=== PATIENT | male | born 1965 | race Caucasian/White ===

== ENCOUNTER 2021-09-15 16:48 | Inpatient (IN) | payer BC ==
[~2021-09-15] VITALS: Ht 182 cm; Wt 110.0 kg
[~2021-09-15 16:48] MED LIST: ACHD5005 PO; ALPR0.25 PO; LOSA100T3 PO; METF-397 PO; TIMO10DR12 OP; TRAV5DRO OP
[2021-09-15] MEDS ORDERED: AMIODARONE (BOLUS) 150 MG/3 ML IV ONE (17:04)
[2021-09-15] MEDS ORDERED: AMIODARONE 450 MG/9 ML (CORDARONE) VIAL IV ONE (17:05)
[2021-09-15] MEDS ORDERED: NOREPINEPHRINE 8 MG/250 ML 250 ML IV ONE ×4 (17:07→22:30)
[2021-09-15 17:15] LABS: BASOPHILS # (AUTO) 0.1 10^3/uL (0.0-0.1); BASOPHILS % (AUTO) 0 % (0-10); EOSINOPHILS # (AUTO) 0.4 10^3/uL (0.0-0.3); EOSINOPHILS % (AUTO) 3 % (0-10); HEMATOCRIT 50 % (40-54); HEMOGLOBIN 15.6 g/dL (13.3-17.7); LYMPHOCYTES # (AUTO) 4.8 10^3/uL (1.0-4.0); LYMPHOCYTES % (AUTO) 34 % (12-44); MEAN CORPUSCULAR HEMOGLOBIN 32 pg (25-34); MEAN CORPUSCULAR HGB CONC 31 g/dL (32-36); MEAN CORPUSCULAR VOLUME 100 fL (80-99); MEAN PLATELET VOLUME 10.5 fL (9.0-12.2); MONOCYTES # (AUTO) 1.5 10^3/uL (0.0-1.0); MONOCYTES % (AUTO) 11 % (0-12); NEUTROPHILS # (AUTO) 7.5 10^3/uL (1.8-7.8); NEUTROPHILS % (AUTO) 52 % (42-75); PLATELET COUNT 246 10^3/uL (130-400); WHITE BLOOD COUNT 14.3 10^3/uL (4.3-11.0)
[2021-09-15] MEDS ORDERED: NS IV 1000 ML 1,000 ML IV SCH ×2 (17:15→19:15)
[2021-09-15 17:17] LABS: BILIRUBIN,URINE NEGATIVE (NEGATIVE); CLARITY,URINE SL CLOUDY; COLOR,URINE YELLOW; GLUCOSE, URINE (UA) 3+ (NEGATIVE); KETONES,URINE NEGATIVE (NEGATIVE); LEUKOCYTE ESTERASE ,URINE NEGATIVE (NEGATIVE); NITRITE,URINE NEGATIVE (NEGATIVE); PROTEIN,URINE 1+ (NEGATIVE)
[2021-09-15 17:20] LABS: ALBUMIN 4.3 GM/DL (3.2-4.5)
[2021-09-15 17:21] LABS: CALCIUM 9.8 MG/DL (8.5-10.1)
[2021-09-15 17:23] LABS: TOTAL PROTEIN 7.3 GM/DL (6.4-8.2)
[2021-09-15] MEDS ORDERED: HEParin 1000 UNIT/ML (10ML VIAL) FOR BOLUS ONE (17:23)
[2021-09-15] MEDS ORDERED: MIDAZOLAM 5 MG/5 ML (VERSED) VIAL ONE (17:23)
[2021-09-15] MEDS ORDERED: NITRO DRIP 25000 MCG/D5W 250 ML IV ONE (17:23)
[2021-09-15] MEDS ORDERED: VERAPAMIL 5 MG/2 ML (CALAN) VIAL IV ONE (17:23)
[2021-09-15] MEDS ORDERED: NS IV 1000 ML 1,000 ML ONE ×2 (17:23→20:34)
[2021-09-15] MEDS ORDERED: fentaNYL INJ 100 MCG/2 ML AMP ONE ×2 (17:23→19:35)
[2021-09-15] MEDS ORDERED: HEParin (CATH LAB) 2,000 ML IV ONE (17:23)
[2021-09-15] MEDS ORDERED: LIDOCAINE 1% INJ 20 ML 20 ML VIAL ONE (17:23)
[2021-09-15 17:24] LABS: BILIRUBIN,TOTAL 0.7 MG/DL (0.1-1.0)
[2021-09-15] MEDS ORDERED: EPINEPHrine (OMNICELL DRIP KIT ONLY) 1 MG/ML AMP ONE (17:25)
[2021-09-15] MEDS ORDERED: NORMAL SALINE 250 ML ONE (17:25)
[2021-09-15 17:26] LABS: CREATININE SERUM 1.07 MG/DL (0.60-1.30)
[2021-09-15 17:27] LABS: INR 1.1 (0.8-1.4); PROTHROMBIN TIME PATIENT 14.9 SEC (12.2-14.7)
[2021-09-15 17:35] LABS: AMORPHOUS SEDIMENT,UR FEW AMOR URATES /LPF; BACTERIA,URINE NEGATIVE /HPF
[2021-09-15 17:36] LABS: URINE OTHER FEW SPERM /HPF
[2021-09-15 17:40] LABS: BASOPHILS % (MANUAL) 2 %; EOSINOPHILS % (MANUAL) 3 %; LYMPHOCYTES % (MANUAL) 33 %; MONOCYTES % (MANUAL) 8 %; NEUTROPHILS % (MANUAL) 54 %; RBC MORPH NORMAL
[2021-09-15 17:45] VITALS: BP 96/68
--- NOTE | 2021-09-15 18:02 | Consultation-Cardiology ---
HPI-Cardiology Cardiology Consultation: Date of Consultation 09/15/21 Date of Admission 09/15/21 Attending Physician Jackie Arredondo Jr, MD Admitting Physician Consulting Physician JACKIE ARREDONDO JR, MD HPI: Time Seen by a Provider: 17:58 Chief Complaint: Reason for consultation: Status post cardiac arrest. I saw [place] in the emergency room this evening. He was intubated and sedated following [id number] cardiac arrest. I obtained the history from his as well as the emergency room provider. According to his , this morning he had gone off to work and this morning was uneventful. However, later in the day he drove home and screamed out to his from the car that he could not breathe. She got her keys and went to the car and decided to drive him to the hospital. On the way here, the patient kept yelling that he could not breathe. Approximately 5 minutes later, the patient lost consciousness. His arrived at the emergency room a short while later. She ran into the emergency room and emergency providers came out and pulled the patient from the vehicle. At that point he was in cardiac arrest. He underwent several rounds of CPR and multiple doses of epinephrine as well as defibrillations. When I saw the patient he was on epinephrine and norepinephrine infusions as well as intravenous amiodarone infusion. His states that he had not felt ill until this episode happened today. He is diabetic and quit smoking a few years ago. Because of the cardiac arrest, a stat cardiology consultation was requested for consideration of emergency cardiac catheterization. Certain portions of this document may have been dictated utilizing voice recognition technology. Inherent to this technology, typographical and grammatical errors may exist. As much as I am diligent to identify and correct these mistakes, some errors may remain in the document. Review of Systems-Cardiology Review of Systems Other comments Not obtained due to clinical status [id number] Hx Patient Social History Marrital Status: Smoking Status: Former Smoker Immunizations Up To Date Date of Influenza Vaccine: Jul 04, 2016 Past Medical History PMH As described under Assessment. Family Medical History Family Medical History: Family history not obtained due to clinical status Allergies and Home Medications Allergies Coded Allergies: Penicillins (Verified Allergy, Unknown, 07/28/16) Patient Home Medication List Home Medication List Reviewed: Yes Alprazolam (Xanax) 0.25 Mg Tablet, 0.25 MG PO PRN PRN for ANXIETY, (Reported) Entered as Reported by: PETER FAJARDO on 07/28/16216 Hydrocodone Bit/Acetaminophen (Lortab 5 Mg Tablet) 1 Each Tablet, 1-2 EACH PO Q6H PRN for PAIN Prescribed by: YANNICK HOFFMAN on 07/28/16317 Losartan Potassium (Cozaar) 100 Mg Tablet, 100 MG PO DAILY, (Reported) Entered as Reported by: PETER FAJARDO on 07/28/16216 Metformin HCl (Metformin HCl) 500 Mg Tablet, 500 MG PO BID, (Reported) Entered as Reported by: PETER FAJARDO on 07/28/16216 Timolol Maleate (Timolol Maleate 0.25%) 10 Ml Drops, 1 DROP OP BID, (Reported) Entered as Reported by: PETER FAJARDO on 07/28/16216 Travoprost (Travatan Z) 5 Ml Drops, 5 ML OP, (Reported) Entered as Reported by: PETER FAJARDO on 07/28/16216 Exam Vital Signs Vital Signs Date Time Temp Pulse Resp B/P (MAP) Pulse Ox O2 Delivery O2 Flow Rate FiO2 09/15/21 19:30 125 18 89 100 Physical Exam General: Intubated and sedated. Well nourished and appears stated age. Eye: Conjunctivae are clear. There are no xanthelasma. HENT: Normocephalic. Atraumatic. Carotid pulsations 2/2 without bruits. Neck: Jugular venous pressure does not appear elevated. No thyromegaly appreciated. Respiratory: Symmetrical expansion bilaterally. Coarse breath sounds due to the ventilator. Cardiovascular: Normal rate. Regular rhythm. No murmur. No gallop. Point of maximal impulse is not appear displaced. Good pulses equal in all extremities. No edema. Gastrointestinal: Soft. Normal bowel sounds. Skin: Skin turgor is normal. There is no pallor. Musculoskeletal: No obvious deformities. Neurologic: Intubated and sedated. Psychiatric: Not obtainable due to clinical status. Labs Laboratory Tests Test 09/15/21 16:50 09/15/21 16:56 09/15/21 17:05 09/15/21 17:50 Range/Units White Blood Count 14.3 H 4.3-11.0 10^3/uL Red Blood Count 4.96 4.30-5.52 10^6/uL Hemoglobin 15.6 13.3-17.7 g/dL Hematocrit 50 40-54 % Mean Corpuscular Volume 100 H 80-99 fL Mean Corpuscular Hemoglobin 32 25-34 pg Mean Corpuscular Hemoglobin Concent 31 L 32-36 g/dL Red Cell Distribution Width 11.9 10.0-14.5 % Platelet Count 246 130-400 10^3/uL Mean Platelet Volume 10.5 9.0-12.2 fL Immature Granulocyte % (Auto) 0 % Neutrophils (%) (Auto) 52 42-75 % Lymphocytes (%) (Auto) 34 12-44 % Monocytes (%) (Auto) 11 0-12 % Eosinophils (%) (Auto) 3 0-10 % Basophils (%) (Auto) 0 0-10 % Neutrophils # (Auto) 7.5 1.8-7.8 10^3/uL Lymphocytes # (Auto) 4.8 H 1.0-4.0 10^3/uL Monocytes # (Auto) 1.5 H 0.0-1.0 10^3/uL Eosinophils # (Auto) 0.4 H 0.0-0.3 10^3/uL Basophils # (Auto) 0.1 0.0-0.1 10^3/uL Immature Granulocyte # (Auto) 0.0 0.0-0.1 10^3/uL Neutrophils % (Manual) 54 % Lymphocytes % (Manual) 33 % Monocytes % (Manual) 8 % Eosinophils % (Manual) 3 % Basophils % (Manual) 2 % Blood Morphology Comment NORMAL Prothrombin Time 14.9 H 12.2-14.7 SEC INR Comment 1.1 0.8-1.4 Activated Partial Thromboplast Time 33 24-35 SEC Sodium Level 147 H 135-145 MMOL/L Potassium Level 4.0 3.6-5.0 MMOL/L Chloride Level 106 98-107 MMOL/L Carbon Dioxide Level 16 L 21-32 MMOL/L Anion Gap 25 H 5-14 MMOL/L Blood Urea Nitrogen 14 7-18 MG/DL Creatinine 1.07 0.60-1.30 MG/DL Estimat Glomerular Filtration Rate 72 BUN/Creatinine Ratio 13 Glucose Level 327 H 70-105 MG/DL Calcium Level 9.8 8.5-10.1 MG/DL Corrected Calcium 9.6 8.5-10.1 MG/DL Total Bilirubin 0.7 0.1-1.0 MG/DL Aspartate Amino Transf (AST/SGOT) 27 5-34 U/L Alanine Aminotransferase (ALT/SGPT) 48 0-55 U/L Alkaline Phosphatase 79 40-136 U/L Troponin I 0.032 H <0.028 NG/ML Total Protein 7.3 6.4-8.2 GM/DL Albumin 4.3 3.2-4.5 GM/DL Urine Color YELLOW Urine Clarity SL CLOUDY Urine pH 6.0 5-9 Urine Specific [place] 1.025 H 1.016-1.022 Urine Protein 1+ H NEGATIVE Urine Glucose (UA) 3+ H NEGATIVE Urine Ketones NEGATIVE NEGATIVE Urine Nitrite NEGATIVE NEGATIVE Urine Bilirubin NEGATIVE NEGATIVE Urine Urobilinogen 0.2 < = 1.0 MG/DL Urine Leukocyte Esterase NEGATIVE NEGATIVE Urine RBC (Auto) 1+ H NEGATIVE Urine RBC 5-10 H /HPF Urine WBC NONE /HPF Urine Crystals PRESENT H /LPF Urine Amorphous Sediment FEW GARIMA URATES H /LPF Urine Bacteria NEGATIVE /HPF Urine Casts NONE /LPF Urine Mucus NEGATIVE /LPF Urine Other FEW SPERM H /HPF Urine Culture Indicated NO Blood Gas Puncture Site RT RAD Blood Gas Patient Temperature 35 Arterial Blood pH 6.89 *L 7.37-7.43 Arterial Blood Partial Pressure CO2 85 *H 35-45 MMHG Arterial Blood Partial Pressure O2 50 L 79-93 MMHG Arterial Blood HCO3 16 *L 23-27 MMOL/L Arterial Blood Total CO2 18.8 L 21.0-31.0 MMOL/L Arterial Blood Oxygen Saturation 64 L 94-100 % Arterial Blood Base Excess -15.8 L -2.5-2.5 MMOL/L Ru Test YES-POS Blood Gas Ventilator Setting YES Blood Gas Inspired Oxygen 100% Test 09/15/21 19:50 Range/Units White Blood Count 20.8 H 4.3-11.0 10^3/uL Red Blood Count 4.57 4.30-5.52 10^6/uL Hemoglobin 14.2 13.3-17.7 g/dL Hematocrit 44 40-54 % Mean Corpuscular Volume 97 80-99 fL Mean Corpuscular Hemoglobin 31 25-34 pg Mean Corpuscular Hemoglobin Concent 32 32-36 g/dL Red Cell Distribution Width 11.9 10.0-14.5 % Platelet Count 258 130-400 10^3/uL Mean Platelet Volume 10.2 9.0-12.2 fL Immature Granulocyte % (Auto) 2 % Neutrophils (%) (Auto) 80 H 42-75 % Lymphocytes (%) (Auto) 13 12-44 % Monocytes (%) (Auto) 3 0-12 % Eosinophils (%) (Auto) 2 0-10 % Basophils (%) (Auto) 0 0-10 % Neutrophils # (Auto) 16.7 H 1.8-7.8 10^3/uL Lymphocytes # (Auto) 2.7 1.0-4.0 10^3/uL Monocytes # (Auto) 0.6 0.0-1.0 10^3/uL Eosinophils # (Auto) 0.4 H 0.0-0.3 10^3/uL Basophils # (Auto) 0.1 0.0-0.1 10^3/uL Immature Granulocyte # (Auto) 0.4 H 0.0-0.1 10^3/uL Prothrombin Time 17.2 H 12.2-14.7 SEC INR Comment 1.4 0.8-1.4 Activated Partial Thromboplast Time 98 H 24-35 SEC D-Dimer 13.70 H 0.00-0.49 UG/ML Sodium Level 133 L 135-145 MMOL/L Potassium Level 4.3 3.6-5.0 MMOL/L Chloride Level 99 98-107 MMOL/L Carbon Dioxide Level 18 L 21-32 MMOL/L Anion Gap 16 H 5-14 MMOL/L Blood Urea Nitrogen 18 7-18 MG/DL Creatinine 1.38 H 0.60-1.30 MG/DL Estimat Glomerular Filtration Rate 53 BUN/Creatinine Ratio 13 Calcium Level 7.9 L 8.5-10.1 MG/DL Corrected Calcium 8.4 L 8.5-10.1 MG/DL Phosphorus Level 9.6 H 2.3-4.7 MG/DL Total Bilirubin 0.7 0.1-1.0 MG/DL Direct Bilirubin 0.5 H 0.0-0.3 MG/DL Indirect Bilirubin 0.2 MG/DL Aspartate Amino Transf (AST/SGOT) 167 H 5-34 U/L Alkaline Phosphatase 97 40-136 U/L Total Protein 5.5 L 6.4-8.2 GM/DL Albumin 3.4 3.2-4.5 GM/DL Amylase Level 179 H 25-125 U/L ECG Impression ECG Comment Probable atrial fibrillation with nonspecific intraventricular conduction delay and borderline anterior ST elevation with diffuse ST depression in the other leads. Diagnosis/Problems Diagnosis/Problems (1) Cardiac arrest Assessment & Plan: Most likely related to ventricular arrhythmia secondary to his severe coronary artery disease and probable acute myocardial infarction. I will continue the intravenous amiodarone infusion for the time being. I am in the process of finding an accepting tax appraiser and cardiac surgeon at a tertiary care facility for transfer. The patient most likely needs advanced mechanical circulatory support which we do not have at our hospital. (2) Cardiogenic shock Assessment & Plan: He now has an intra-aortic balloon pump. He is on epinep hrine and norepinephrine infusions. I am not sure how much longer we will be able to support him without advanced mechanical circulatory support. (3) Coronary artery disease with unstable angina pectoris Assessment & Plan: As above, he has severe three-vessel coronary artery disease involving the distal left main coronary artery. He has most likely having a non-ST elevation myocardial infarction. He has severe left ventricular systolic dysfunction. He needs urgent coronary artery bypass surgery. I would be hesitant to attempt any sort of percutaneous intervention in our hospital due to the severe calcification of his coronary arteries. He is on heparin infusion. I have started him on aspirin and high-dose statin medication. (4) Ischemic cardiomyopathy Assessment & Plan: As above, I suspect he is going to need advanced mechanical circulatory support which we do not have at our institution. (5) Acute HFrEF (heart failure with reduced ejection fraction) Assessment & Plan: He has diffuse patchy infiltrates on his chest x-ray. I suspect he has acute heart failure. (6) Primary hypertension Assessment & Plan: All antihypertensive agents are on hold due to his current clinical status. (7) Mixed hyperlipidemia Assessment & Plan: As above, I will start high-dose statin medication. (8) Type 2 diabetes mellitus with complication Assessment & Plan: He may need insulin infusion during this acute critical illness. JACKIE ARREDONDO JR, MD Sep 15, 2021 18:02
--- NOTE | 2021-09-15 18:04 | Pre-Op Note & Conscious Sedat ---
Pre-Operative Progress Note H&P Reviewed The H&P was reviewed, patient examined and no changes noted. Date H&P Reviewed: Sep 15, 2021 Time H&P Reviewed: 18:02 Pre-Op Diagnosis: Status post cardiac arrest The patient is intubated and sedated prior to the procedure. Conscious Sedation Pre-Proced Time 18:04 ASA Score 3 For ASA 3 and 4: Consider anesthesia and medical clearance. Also, for patients with a history of failed moderate sedation consider anesthesia. Airway Lungs Heart ASA score ASA 1: a normal healthy patient ASA 2: a patient with a mild systemic disease (mid diabetes, controlled hypertension, obesity ASA 3: a patient with a severe systemic disease that limits activity (angina, COPD, prior Myocardial infarction) ASA 4: a patient with an incapacitating disease that is a constant threat to life (CHF, renal failure) ASA 5: a moribund patient not expected to survive 24 hrs. (ruptured aneurysm) ASA 6: a declared brain- patient whose organs are being harvested. For emergent operations, add the letter E after the classification Mallampati Classification Grade 2 Sedation Plan Analgesia, Amnesia, Plan communicated to team members, Discussed options with patient/fam, Discussed risks with patient/fam The patient is an appropriate candidate to undergo the planned procedure, sedation, and anesthesia. The patient immediately re-assessed prior to indication. JACKIE CORTEZ JR, MD Sep 15, 2021 18:04
[2021-09-15 18:06] LABS: ABG BASE EXCESS -15.8 MMOL/L (-2.5-2.5); ABG OXYGEN SATURATION 64 % (94-100); ABG TCO2 18.8 MMOL/L (21.0-31.0)
[2021-09-15 18:07] LABS: ABG PO2 50 MMHG (79-93)
[2021-09-15 18:09] LABS: ABG PCO2 85 MMHG (35-45); ABG PH 6.89 (7.37-7.43); ALLENS TEST YES-POS
[2021-09-15 18:10] LABS: INSPIRED O2 100%; PATIENT TEMP 35; VENTILATOR YES
[2021-09-15] MEDS ORDERED: MAGNESIUM 4 GM/100 ML IVPB 100 ML IV ONE (18:22)
[2021-09-15] MEDS ORDERED: MAGNESIUM SULFATE DRIP 500 ML IV ONE (18:22)
[2021-09-15] MEDS ORDERED: HEParin (CATH LAB) 1,000 ML IV ONE ×2 (18:23→18:54)
--- NOTE | 2021-09-15 18:28 | ED Cardiac General ---
History of Present Illness General Stated Complaint: CODE BLUE Source: patient Exam Limitations: no limitations History of Present Illness Date Seen by Provider: Sep 15, 2021 Time Seen by Provider: 16:50 Initial Comments 55-year-old male presents to the emergency room by private vehicle with his , she comes into admissions stating that she felt like her was in the car outside. She relates that he had gone to the water plant and come home about 30 minutes prior to their arrival in the ER and stated that he was really short of breath and wanted to come to the emergency department. No recent illnesses no Covid concerns. She states he seemed very short of breath, she put him in the car and about 5 minutes away from the hospital he went unresponsive and slumped to the left side. We went out to the car and found him pulseless, apneic, blue. He was immediately placed on a stretcher and CPR was started. Patient history of HTN and DM. no known CAD. Initially about 12-15 min of CPR and we obtained ROSC. Patient continued with pulse for a brief period and degenerated into PEA. Patient was intubated by Juanito Schwab NP patient underwent CPR a second time, then this cycle repeated over about 45 minutes with intermittent ROSC. PLease see nurses notes for timing of resuscitative efforts and medication administration. was kept updated. Timing/Duration: 1 hour Severity: severe Activities at Onset: activity Prior CP/Workup: no prior chest pain, no prior cardiac workup NTG SL PHARMACOVIGILANCE SPECIALIST: No ASA po PHARMACOVIGILANCE SPECIALIST: No Allergies and Home Medications Allergies Coded Allergies: Penicillins (Verified Allergy, Unknown, 07/28/16) Patient Home Medication List Home Medication List Reviewed: Yes Alprazolam (Xanax) 0.25 Mg Tablet, 0.25 MG PO PRN PRN for ANXIETY, (Reported) Entered as Reported by: PETER FAJARDO on 07/28/16216 Hydrocodone Bit/Acetaminophen (Lortab 5 Mg Tablet) 1 Each Tablet, 1-2 EACH PO Q6H PRN for PAIN Prescribed by: YANNICK HOFFMAN on 07/28/16317 Losartan Potassium (Cozaar) 100 Mg Tablet, 100 MG PO DAILY, (Reported) Entered as Reported by: PETER FAJARDO on 07/28/16216 Metformin HCl (Metformin HCl) 500 Mg Tablet, 500 MG PO BID, (Reported) Entered as Reported by: PETER FAJARDO on 07/28/16216 Timolol Maleate (Timolol Maleate 0.25%) 10 Ml Drops, 1 DROP OP BID, (Reported) Entered as Reported by: PETER FAJARDO on 07/28/16216 Travoprost (Travatan Z) 5 Ml Drops, 5 ML OP, (Reported) Entered as Reported by: PETER FAJARDO on 07/28/16216 Review of Systems Review of Systems Constitutional: see HPI Respiratory: Shortness of Air Other Comments Unable to obtain ROS from patient due to patient unresponsiveness/code Past [id number]-[id number] Hx Patient Social History Smoking Status: Former Smoker Seasonal Allergies Seasonal Allergies: No Past Medical History Tonsillectomy Hypertension Reproductive Disorders: No Diabetes, Non-Insulin dep Glaucoma Adverse Reaction/Blood Tranf: No Physical Exam Vital Signs Capillary Refill : Height, Weight, BMI Height: 6'2" Weight: 240lbs. oz. 108.636959iy; BMI Method:Stated General Appearance: Other (unresponsive) HEENT: Other (pupils dilated at 5mm) Neck: Normal Inspection Respiratory: Other (no spontaneous respirations) Cardiovascular: Other (no pulse; CPR in progress) Gastrointestinal: Soft, Other (non distended) Rectal: Other (patient was incotinent) Extremity: Other (no obvious external signs of trauma) Neurologic/Psychiatric: Other (unresponsive) Skin: Cyanosis Focused Exam Lactic Acid Level Laboratory Tests Test 09/15/21 00:15 Lactic Acid Level 5.11 MMOL/L (0.50-2.00) *H Procedures/Interventions Date of ETT Placement: Sep 15, 2021 Time of ETT Placement: 1744 Tube Size: 8.00 Positive End Tide CO2: Yes Breath Sounds after Intubation: bilateral-equal Intubation Complications: no complications Post Intubation Xray: Yes Tube at the level of the clavicles; pulmonary edema Progress/Results/Core Measures Results/Orders Lab Results Laboratory Tests Test 09/15/21 00:15 09/15/21 16:50 09/15/21 16:56 09/15/21 17:05 Range/Units Lactic Acid Level 5.11 *H 0.50-2.00 MMOL/L SARS-CoV-2 RNA (RT-PCR) Not Detected Negative White Blood Count 14.3 H 4.3-11.0 10^3/uL Red Blood Count 4.96 4.30-5.52 10^6/uL Hemoglobin 15.6 13.3-17.7 g/dL Hematocrit 50 40-54 % Mean Corpuscular Volume 100 H 80-99 fL Mean Corpuscular Hemoglobin 32 25-34 pg Mean Corpuscular Hemoglobin Concent 31 L 32-36 g/dL Red Cell Distribution Width 11.9 10.0-14.5 % Platelet Count 246 130-400 10^3/uL Mean Platelet Volume 10.5 9.0-12.2 fL Immature Granulocyte % (Auto) 0 % Neutrophils (%) (Auto) 52 42-75 % Lymphocytes (%) (Auto) 34 12-44 % Monocytes (%) (Auto) 11 0-12 % Eosinophils (%) (Auto) 3 0-10 % Basophils (%) (Auto) 0 0-10 % Neutrophils # (Auto) 7.5 1.8-7.8 10^3/uL Lymphocytes # (Auto) 4.8 H 1.0-4.0 10^3/uL Monocytes # (Auto) 1.5 H 0.0-1.0 10^3/uL Eosinophils # (Auto) 0.4 H 0.0-0.3 10^3/uL Basophils # (Auto) 0.1 0.0-0.1 10^3/uL Immature Granulocyte # (Auto) 0.0 0.0-0.1 10^3/uL Neutrophils % (Manual) 54 % Lymphocytes % (Manual) 33 % Monocytes % (Manual) 8 % Eosinophils % (Manual) 3 % Basophils % (Manual) 2 % Blood Morphology Comment NORMAL Prothrombin Time 14.9 H 12.2-14.7 SEC INR Comment 1.1 0.8-1.4 Activated Partial Thromboplast Time 33 24-35 SEC Sodium Level 147 H 135-145 MMOL/L Potassium Level 4.0 3.6-5.0 MMOL/L Chloride Level 106 98-107 MMOL/L Carbon Dioxide Level 16 L 21-32 MMOL/L Anion Gap 25 H 5-14 MMOL/L Blood Urea Nitrogen 14 7-18 MG/DL Creatinine 1.07 0.60-1.30 MG/DL Estimat Glomerular Filtration Rate 72 BUN/Creatinine Ratio 13 Glucose Level 327 H 70-105 MG/DL Calcium Level 9.8 8.5-10.1 MG/DL Corrected Calcium 9.6 8.5-10.1 MG/DL Total Bilirubin 0.7 0.1-1.0 MG/DL Aspartate Amino Transf (AST/SGOT) 27 5-34 U/L Alanine Aminotransferase (ALT/SGPT) 48 0-55 U/L Alkaline Phosphatase 79 40-136 U/L Troponin I 0.032 H <0.028 NG/ML Total Protein 7.3 6.4-8.2 GM/DL Albumin 4.3 3.2-4.5 GM/DL Urine Color YELLOW Urine Clarity SL CLOUDY Urine pH 6.0 5-9 Urine Specific [place] 1.025 H 1.016-1.022 Urine Protein 1+ H NEGATIVE Urine Glucose (UA) 3+ H NEGATIVE Urine Ketones NEGATIVE NEGATIVE Urine Nitrite NEGATIVE NEGATIVE Urine Bilirubin NEGATIVE NEGATIVE Urine Urobilinogen 0.2 < = 1.0 MG/DL Urine Leukocyte Esterase NEGATIVE NEGATIVE Urine RBC (Auto) 1+ H NEGATIVE Urine RBC 5-10 H /HPF Urine WBC NONE /HPF Urine Crystals PRESENT H /LPF Urine Amorphous Sediment FEW GARIMA URATES H /LPF Urine Bacteria NEGATIVE /HPF Urine Casts NONE /LPF Urine Mucus NEGATIVE /LPF Urine Other FEW SPERM H /HPF Urine Culture Indicated NO My Orders Orders - JOSE AGUDELO MD Amiodarone For Bolus (Cordarone Bolus) (09/15/21 17:04) Amiodarone Injection (Cordarone Injectio (09/15/21 17:05) Ekg Tracing (09/15/21 17:07) Chest 1 View, Ap/Pa Only (09/15/21 17:07) Cbc With Automated Diff (09/15/21 17:07) Comprehensive Metabolic Panel (09/15/21 17:07) Troponin I [place] (09/15/21 17:07) Ua Culture If Indicated (09/15/21 17:07) Protime With Inr (09/15/21 17:07) Partial Thromboplastin Time (09/15/21 17:07) Accucheck Stat ONCE (09/15/21 17:07) Ct Head Wo (09/15/21 17:07) Covid 19 Inhouse Test (09/15/21 17:07) Isolation Central Supply Req (09/15/21 17:07) Ns Iv 1000 Ml (Sodium Chloride 0.9%) (09/15/21 17:15) Norepinephrine 8 Mg/250 Ml (Norepinephri (09/15/21 17:07) Norepinephrine 8 Mg/250 Ml (Norepinephri (09/15/21 17:10) Manual Differential (09/15/21 16:56) Progress Progress Note : Time: 18:26 Progress Note Patient currently in Yeast Super[facility]. Care assumed by Dr. Arredondo. Patient had ongoing, intermittent CPR for approximately an hour. Intermittently had ROSC. Seem to respond best to epinephrine pushes. Initially heart rate would come back and stay in the 120s to 130s. After the fourth episode of arr est his heart rate settled in the 80s, on Levophed with a blood pressure of about 100 systolic. Patient also had a 300 mg amiodarone bolus. He was on an epi drip. EKG showed suspicion for posterior acute myocardial infarction. Nurse practitioner Juanito Schwab contacted Yeast Supervisor and cardiology while we were resuscitating the patient. Initial ECG Impression Date: Sep 15, 2021 Initial ECG Impression Time: 17:10 Initial ECG Rate: 127 Initial ECG Rhythm: S.Tach Initial ECG Intervals HI interval 114 QRS 124 QTc 431 Initial ECG Impression: Acute MD Comment ST depression noted in leads V4 5 and 6 of about 2 mm with elevation in aVR and lead V1 of 1 mm. Suspect acute MD Critical Care Note Critical Care Start Time: 16:50 Stop Time: 18:00 Total Time (minutes) 45 minutes critical care time in the evaluation and management of this patient presenting as a "CODE BLUE" to the emergency department. Time includes initial evaluation/physical exam, management of CPR, medication administration, management of pressors, fluids. Time also includes review of the medical record, review and interpretation of EKG, discussion with cardiology. Time does not include that spent in procedures. Departure Impression Primary Impression: Cardiac arrest Additional Impression: Cardiogenic shock Disposition: ADMITTED INPATIENT Condition: Critical Admissions Decision to Admit Reason: Admit from ER (General) Decision to Admit/Date: Sep 15, 2021 Time/Decision to Admit Time: 18:00 JOSE AGUDELO MD Sep 15, 2021 18:28
[2021-09-15] MEDS ORDERED: MAGNESIUM 1 GM/100 ML IVPB 200 ML IV ONE (18:43)
--- NOTE | 2021-09-15 18:50 | Diagnostic Imaging Report ---
CLINICAL INDICATION: Patient is status post CODE BLUE. EXAM: Portable chest x-ray upright view. COMPARISON: None. FINDINGS: Of note, the right costophrenic angle region is not imaged on this exam. There is diffuse bilateral lung patchy infiltrates and consolidation. There is a linear area of consolidation involving the right lower lung field region. There is no pneumothorax. There is no definite pleural effusion. Cardiomegaly is seen. Pulmonary vasculature is obscured. ET tube seen roughly 6.6 cm from the expected region of the tammy. Feeding tube is seen below the level of the diaphragm with its distal portion not completely imaged. There are degenerative spurs involving the spine. IMPRESSION: 1: There is diffuse bilateral lung infiltrates. 2: ET tube and feeding tube seen. 3: Cardiomegaly. Dictated by: Dictated on workstation # [id number]
--- NOTE | 2021-09-15 18:57 | Cardiac Cath Report ---
CARDIAC CATHETERIZATION DATE OF PROCEDURE: 09/15/2021 INDICATION: Cardiogenic shock, coronary artery disease with unstable angina, and ischemic cardiomyopathy. HISTORY: The patient is a 55 year old male with no previously known history of coronary artery disease. He presented to our hospital with [id number] cardiac arrest. After approximately 45 minutes of intermittent ACLS protocol, the patient regained spontaneous circulation. He was subsequently taken for emergency cardiac catheterization. He was found to have severe three-vessel coronary artery disease involving the distal left main coronary artery and severe cardiomyopathy. The patient remained in shock prior to and during the procedure on norepinephrine and epinephrine infusions. In light of these findings, we elected to proceed with intra-aortic balloon pump placement. PROCEDURES PERFORMED: 1. Intra-aortic balloon pump placement via right femoral artery. PROCEDURE DESCRIPTION: Emergency intra-aortic balloon pump was placed via the right femoral artery. I first obtained access to the right femoral artery utilizing a micropuncture technique. I then upsized to a 6 Prydeinig sheath. I then exchanged this for the 8 Prydeinig intra-aortic balloon pump sheath. I subsequently advanced a 40 cm intra-aortic balloon pump into the descending aorta over a wire under fluoroscopic guidance. The wire was removed and the device was activated. There was good augmentation. The device was sutured in place. IMPRESSION: 1. Status post intra-aortic balloon pump placement via the right femoral artery for cardiogenic shock in the setting of severe three-vessel coronary artery disease and severe ischemic cardiomyopathy. Certain portions of this document may have been dictated utilizing voice recognition technology. Inherent to this technology, typographical and grammatical errors may exist. As much as I am diligent to identify and correct these mistakes, some errors may remain in the document. JACKIE CORTEZ JR, MD Sep 15, 2021 18:57
[2021-09-15] MEDS ORDERED: HEParin 1000 UNIT/ML (10ML VIAL) FOR BOLUS IV PRN (19:00)
[2021-09-15] MEDS ORDERED: HEParin DRIP 25000 UNIT/500ML 500 ML IV SCH (19:00)
[2021-09-15] MEDS ORDERED: PATIENT MAY USE OWN MEDS, ALL PO SCH (19:15)
[2021-09-15] MEDS ORDERED: LORazepam INJ 2 MG/ML (ATIVAN) VIAL ONE (19:26)
[2021-09-15] MEDS ORDERED: fentaNYL DRIP PRE-MIX 250 ML IV ONE (19:26)
[2021-09-15] MEDS ORDERED: PROPOFOL DRIP (ICU) 100 ML IV ONE ×2 (19:26→22:30)
[2021-09-15 19:30] VITALS: BP 92/53
[2021-09-15] MEDS ORDERED: ROCURONIUM 10 MG/ML 5 ML SYRINGE IV ONE (19:36)
--- NOTE | 2021-09-15 19:48 | Diagnostic Imaging Report ---
Clinical indication: Patient status post code. STEMI. Exam: Axial CT scan of the brain without IV contrast with coronal and sagittal reformatted images. Auto Exposure Controls were utilized during the CT exam to meet ALARA standards for radiation dose reduction. Comparison: None. Findings: There is skull streak artifact limiting evaluation of the brainstem, posterior fossa and portions of the brain. There is external device seen anterior to the frontal bone which causes streak artifact obscuring portions of the brain parenchyma. There is diminished visualization of the patten-white matter distinction involving both cerebral hemispheres and cerebellum this may be related to anoxic injury, but CT artifact limits evaluation and may obscure findings. There is no brain herniation or midline shift. There is no hydrocephalus. There is no intracranial hemorrhage. Basal cisterns are unremarkable. The extracranial soft tissues, skull and orbits are unremarkable. There is mild mucosal thickening involving both maxillary sinuses, sphenoid sinus, and ethmoid sinus. Mastoid air cells are clear. Impression: 1: Skull streak artifact limits evaluation of brain parenchyma. There is concern for diminished visualization of patten-white matter involving both cerebral hemispheres and cerebellar regions. This may be due to anoxic brain injury. Follow-up head CT and/or MRI of the brain would help better evaluate. 2: There is no intracranial hemorrhage or other concern for acute intracranial abnormality. Results of this report were discussed with a nurse working with Dr. Sherif Arredondo Jr. via the telephone on 09/15/2021 at 1940 hours. Dictated by: Dictated on workstation # [id number]
[2021-09-15 20:05] LABS: BASOPHILS # (AUTO) 0.1 10^3/uL (0.0-0.1); BASOPHILS % (AUTO) 0 % (0-10); EOSINOPHILS # (AUTO) 0.4 10^3/uL (0.0-0.3); EOSINOPHILS % (AUTO) 2 % (0-10); HEMATOCRIT 44 % (40-54); HEMOGLOBIN 14.2 g/dL (13.3-17.7); LYMPHOCYTES # (AUTO) 2.7 10^3/uL (1.0-4.0); LYMPHOCYTES % (AUTO) 13 % (12-44); MEAN CORPUSCULAR HEMOGLOBIN 31 pg (25-34); MEAN CORPUSCULAR HGB CONC 32 g/dL (32-36); MEAN CORPUSCULAR VOLUME 97 fL (80-99); MEAN PLATELET VOLUME 10.2 fL (9.0-12.2); MONOCYTES # (AUTO) 0.6 10^3/uL (0.0-1.0); MONOCYTES % (AUTO) 3 % (0-12); NEUTROPHILS # (AUTO) 16.7 10^3/uL (1.8-7.8); NEUTROPHILS % (AUTO) 80 % (42-75); PLATELET COUNT 258 10^3/uL (130-400); WHITE BLOOD COUNT 20.8 10^3/uL (4.3-11.0)
--- NOTE | 2021-09-15 20:16 | Procedure/Intervention Note ---
Procedures/Interventions Lumen: triple Position: internal jugular (L) Anesthesia: local Volume Anesthetic (ccs): 3 Complications: none Post Position: sutured, good blood return, position confirmed w/ CXR called ICU to place a central line. Patient just got a cath. He is on a balloon pump and has an 18-gauge in the right antecubital fossa. He is intubated. 16 cm left IJ triple-lumen central line placed under ultrasound guidance sterile technique without difficulty Date of ETT Placement: Sep 15, 2021 Time of ETT Placement: 1745 Tube Size: 8.00 Positive End Tide CO2: Yes Breath Sounds after Intubation: bilateral-equal Intubation Complications: no complications Post Intubation Xray: Yes Tube at the level of the clavicles; pulmonary edema JEFF STAPLETON [employer]SEM[employer]ER Sep 15, 2021 20:16
--- NOTE | 2021-09-15 20:21 | Tele-ICU Consult ---
History of Present Illness History of Present Illness Date Seen by Provider: Sep 15, 2021 Time Seen by Provider: 20:21 History of Present Illness 55 yo M had 45 min CP arrest, went to [facility] and found to have severe 3 vessel disease. also severe CPM, IABP inserted, on epi and norepi, Needs CABP, [facility] has accepted pt but unable to travel due to very poor weather. This was out of hosp arrest On AC 18, Vt 550, FiO2 100% PEEP 12, SpO2 92% Pt is having myoclonus PMH HTN, HLD, DM2 on metformin Allergies and Home Medications Allergies Coded Allergies: Penicillins (Verified Allergy, Unknown, 07/28/16) Home Medications Alprazolam 0.25 Mg Tablet, 0.25 MG PO PRN PRN for ANXIETY, (Reported) Hydrocodone Bit/Acetaminophen 1 Each Tablet, 1-2 EACH PO Q6H PRN for PAIN Prescribed by: YANNICK HOFFMAN on 07/28/16 0318 Losartan Potassium 100 Mg Tablet, 100 MG PO DAILY, (Reported) Metformin HCl 500 Mg Tablet, 500 MG PO BID, (Reported) Timolol Maleate 10 Ml Drops, 1 DROP OP BID, (Reported) Past Medical/Social/Family Hx Patient Social History Marrital Status: Smoking Status: Former Smoker Review of Systems Constitutional: see HPI Focused Exam Lactate Level 09/15/21 19:50: Height, Weight, BMI Height: 6'2" Weight: 240lbs. oz. 108.642620ag; BMI Method:Stated Lactic Acid Level Laboratory Tests Test 09/15/21 19:50 Exam Exam Patient acknowledged, consented, and participated in this virtual visit which was conducted using real time audio/video Vital Signs Date Time Temp Pulse Resp B/P (MAP) Pulse Ox O2 Delivery O2 Flow Rate FiO2 09/15/21 17:45 108 18 100 Height & Weight Height: 6'2" Weight: 240lbs. oz. 108.474478cg; BMI Method:Stated General Appearance: Moderate Distress, Other (unresponsive) HEENT: Other (pupils 2 mm sluggish) Neck: Normal Inspection Respiratory: Rhonci, Other (no spontaneous respirations) Cardiovascular: Regular Rate, Rhythm, Tachycardia, Other (no pulse; CPR in progress) Peripheral Pulses: 2+ Dorsalis Pedis (R), 2+ Left Dors-Pedis (L), 2+ Radial Pulses (R), 2+ Radial Pulses (L) Gastrointestinal: normal bowel sounds, non tender, soft Extremity: Other (no obvious external signs of trauma) Neurologic/Psychiatric: Other (unresponsive) Skin: Cyanosis Results Lab Laboratory Tests 09/15/21 16:56 09/15/21 19:50 Assessment/Plan Assessment/Plan Will continue on IABP, vent, cardiiology managment to continue will continue IV Propofol, Fentanyl, Norepi Pt unable to go to due by air due to weather, possible transfer by ground if weather improves, Based on myoclonus, looks to have anoxic brain damage, to be further worked up in AM by CT or MRI if stable Critical Care: Ventilator Management Time spent with patient (mins): 40 JAI MELENDEZ MD Sep 15, 2021 20:21
[2021-09-15 20:28] LABS: ALBUMIN 3.4 GM/DL (3.2-4.5); POTASSIUM 4.3 MMOL/L (3.6-5.0)
[2021-09-15 20:29] LABS: CALCIUM 7.9 MG/DL (8.5-10.1)
[2021-09-15 20:31] LABS: TOTAL PROTEIN 5.5 GM/DL (6.4-8.2)
[2021-09-15 20:32] LABS: BILIRUBIN,TOTAL 0.7 MG/DL (0.1-1.0)
[2021-09-15 20:34] LABS: CREATININE SERUM 1.38 MG/DL (0.60-1.30); PHOSPHORUS 9.6 MG/DL (2.3-4.7)
[2021-09-15 20:36] LABS: BILIRUBIN,DIRECT 0.5 MG/DL (0.0-0.3); BILIRUBIN,INDIRECT 0.2 MG/DL
[2021-09-15 20:37] LABS: FIBRIN DEGRADATION PRODUCTS 13.7 UG/ML (0.00-0.49); INR 1.4 (0.8-1.4); PROTHROMBIN TIME PATIENT 17.2 SEC (12.2-14.7)
--- NOTE | 2021-09-15 21:00 | Cardiac Cath Report ---
CARDIAC CATHETERIZATION DATE OF PROCEDURE: 09/15/2021 INDICATION: Status post cardiac arrest now with cardiogenic shock. HISTORY: The patient is a 55 year old male with no previously known history of coronary artery disease. Earlier today he returned home from work and yelled out to his that he could not breathe. She got in the car and started drivi ng to our emergency room. About 5 minutes before she arrived, the patient collapsed and lost consciousness. When she arrived at the hospital, she came into the emergency room and the emergency room staff went out to his car and brought him into the emergency room. He was in cardiac arrest. ACLS protocol was started. The patient intermittently regained spontaneous circulation and ultimately after 45 minutes of intermittent ACLS protocol, the patient seemed to regain spontaneous circulation for more prolonged period of time. An electrocardiogram at that time showed sinus tachycardia with diffuse ST depression. In light of these findings, we elected to proceed with emergency cardiac catheterization. PROCEDURES PERFORMED: 1. Left heart catheterization with hemodynamic measurements. 2. Diagnostic cheesh-na coronary angiography. PROCEDURE DESCRIPTION: After informed consent and in the fasting state, left heart catheterization was performed through the right radial artery utilizing a 6 Czech system by percutaneous approach. Standard Antonio catheters were utilized for the diagnostic portion of the procedure. All catheters were ex changed over a guidewire. Following the procedure, a vascular band was applied to the radial artery access site and the sheath was removed with good hemostasis. RESULTS: HEMODYNAMICS: The aortic pressure was 118/39 mmHg on norepinephrine and epinephrine infusion. The left ventricular pressure was 120/6 mmHg with a left ventricular end-diastolic pressure of 40 mmHg. There was no significant pressure gradient upon pullback across aortic valve. CORONARY ANGIOGRAPHY: The coronary arteries were diffusely calcified. Left main coronary artery: There was a 90% stenosis distally with heavy calcification and potentially thrombus. There was RUPINDER-2 flow. This formed a bifurcation lesion with the left anterior descending and left circumflex coronary artery with a Fernandez classification of 1, 0, 1. Left anterior descending coronary artery: There was a 99% stenosis in the proximal segment at the takeoff of the first large septal supervisor [employer]. The distal vessel and 2 diagonal branches contain severe diffuse disease. Left circumflex coronary artery: Codominant and there was a long 90% stenosis proximally and the distal vessel was comprised of 2 obtuse marginal branches and a left posterolateral branch that were all small and diffusely diseased. Right coronary artery: Codominant and there was an 80% stenosis in the mid segment with RUPINDER-2 flow distally. LEFT VENTRICULAR ANGIOGRAPHY: Left ventricular angiography was performed in the PETERSON projection with 30 mL of contrast by power injection. There was severe global hypokinesis with an estimated ejection fraction of 15-20%. There was no angiographic evidence of mitral regurgitation. IMPRESSION: 1. Cardiogenic shock with markedly elevated left ventricular end-diastolic pressure. 2. Severe, calcific cheesh-na three-vessel coronary artery disease involving the distal left main coronary artery in a codominant system as outlined above. 3. Severe left ventricular systolic dysfunction with an estimated ejection fraction of 15-20% with global hypokinesis. 4. Intra-aortic balloon pump was placed via the right femoral artery. Please see separate report for further details. 5. The patient needs transfer to a tertiary care facility and possibly a heart transplant center for advanced mechanical circulatory support and possible shandra nary artery bypass surgery. Certain portions of this document may have been dictated utilizing voice recognition technology. Inherent to this technology, typographical and grammatical errors may exist. As much as I am diligent to identify and correct these mistakes, some errors may remain in the document. JACKIE CORTEZ JR, MD Sep 15, 2021 21:00
[2021-09-15 21:08] VITALS: BP 87/50
[2021-09-15 21:11] LABS: ABG BASE EXCESS -10.2 MMOL/L (-2.5-2.5); ABG OXYGEN SATURATION 87 % (94-100); ABG PO2 79 MMHG (79-93); ABG TCO2 22.8 MMOL/L (21.0-31.0)
[2021-09-15 21:12] LABS: INSPIRED O2 100%; PATIENT TEMP 36.3; VENTILATOR YES
[2021-09-15 21:13] LABS: ABG PCO2 90 MMHG (35-45); ABG PH 6.98 (7.37-7.43)
--- NOTE | 2021-09-15 21:59 | Progress Note ---
Standard Progress Note Progress Notes/Assess & Plan Date Seen by a Provider: Sep 15, 2021 Time Seen by a Provider: 21:59 Progress/Assessment & Plan increase rate to 24 on vent and start insulin drip Final Diagnosis called for pH 6.98, on AC 18, will increase rate to 24, also, glu > 400, will start insulin drip, CT head shows cerebral anoxia, a bad prognostic sign Oskar Gtz MD Focused Exam Lactate Level 09/15/21 19:50: Lactic Acid Level 7.15*H Lactic Acid Level Laboratory Tests Test 09/15/21 19:50 Lactic Acid Level 7.15 MMOL/L (0.50-2.00) *H Clinical Quality Measures AMI/AHF: ASA po Prior to arrival: JAI Aggarwal MD Sep 15, 2021 21:59
[2021-09-15] MEDS ORDERED: DOBUTamine DRIP 250 ML IV SCH (22:00)
[2021-09-15] MEDS ORDERED: DOBUTamine DRIP 250 ML IV ONE (22:03)
--- NOTE | 2021-09-15 22:05 | Diagnostic Imaging Report ---
CLINICAL INDICATION: Central line placement check. EXAM: Portable chest x-ray upright view. COMPARISON: Chest x-ray dated 09/15/2021 at 1749 hours. FINDINGS AND IMPRESSION: 1: Interval placement of left IJ central line with tip overlying the expected region of the distal innominate vein. This catheter should be advanced at least another 3 cm to ensure improved position. 2: There is no pneumothorax. 3: There is interval progression of diffuse right lung infiltrates and similar left lung infiltrates. 4: The remainder of this exam shows no significant interval change compared to the prior study of comparison. Dictated by: Dictated on workstation # [id number]
[2021-09-15] MEDS: PROPOFOL DRIP (ICU) 100 ML IV SCH (22:37)
[2021-09-15] MEDS: fentaNYL DRIP PRE-MIX 250 ML IV SCH (22:38)
[2021-09-15] MEDS ORDERED: PHENYLEPHRINE INJ 10 MG/ML (FOR DRIP KITS ONLY) ONE (22:47)
[2021-09-15] MEDS ORDERED: NS (IVPB) 250 ML ONE (22:48)
[2021-09-15] MEDS ORDERED: NOREPINEPHRINE 8 MG/250 ML 250 ML IV SCH (23:30)
[2021-09-16] MEDS: NOREPINEPHRINE 16 MG in NS (IVPB) 250 ML IV SCH ×3 (00:29→07:20)
[2021-09-16] MEDS: PHENYLEPHRINE INJECTION 40 MG in NS (IVPB) 250 ML IV SCH ×4 (00:30→07:53)
[2021-09-16 01:32] LABS: ABG BASE EXCESS -9.8 MMOL/L (-2.5-2.5); ABG OXYGEN SATURATION 98 % (94-100); ABG PCO2 47 MMHG (35-45); ABG PO2 122 MMHG (79-93); ABG TCO2 19.6 MMOL/L (21.0-31.0)
[2021-09-16 01:33] LABS: ABG PH 7.17 (7.37-7.43); INSPIRED O2 100%; PATIENT TEMP 33.1; VENTILATOR YES
[2021-09-16 01:55] VITALS: BP 99/51
[2021-09-16 02:12] LABS: BASOPHILS # (AUTO) 0.1 10^3/uL (0.0-0.1); BASOPHILS % (AUTO) 0 % (0-10); EOSINOPHILS % (AUTO) 0 % (0-10); HEMATOCRIT 43 % (40-54); HEMOGLOBIN 14.4 g/dL (13.3-17.7); LYMPHOCYTES # (AUTO) 0.8 10^3/uL (1.0-4.0); LYMPHOCYTES % (AUTO) 3 % (12-44); MEAN CORPUSCULAR HEMOGLOBIN 31 pg (25-34); MEAN CORPUSCULAR HGB CONC 33 g/dL (32-36); MEAN CORPUSCULAR VOLUME 94 fL (80-99); MONOCYTES # (AUTO) 2.2 10^3/uL (0.0-1.0); MONOCYTES % (AUTO) 8 % (0-12); NEUTROPHILS # (AUTO) 23.6 10^3/uL (1.8-7.8); NEUTROPHILS % (AUTO) 88 % (42-75); PLATELET COUNT 225 10^3/uL (130-400)
[2021-09-16] MEDS: NS IV 1000 ML 1,000 ML IV SCH ×2 (02:13→06:40)
[2021-09-16 02:20] LABS: POTASSIUM 3.7 MMOL/L (3.6-5.0)
[2021-09-16 02:21] LABS: CALCIUM 7.6 MG/DL (8.5-10.1)
[2021-09-16 02:25] LABS: PHOSPHORUS 4.6 MG/DL (2.3-4.7)
[2021-09-16 02:26] LABS: CREATININE SERUM 1.28 MG/DL (0.60-1.30)
[2021-09-16 02:28] LABS: MAGNESIUM 2.1 MG/DL (1.6-2.4)
[2021-09-16] MEDS ORDERED: MAGNESIUM SULFATE DRIP 500 ML IV SCH (03:00)
[2021-09-16] MEDS ORDERED: ACETAMINOPHEN 500 MG TAB (TYLENOL) PO PRN (03:00)
[2021-09-16 03:05] LABS: ALBUMIN 3.3 GM/DL (3.2-4.5)
[2021-09-16 03:06] LABS: POTASSIUM 3.6 MMOL/L (3.6-5.0)
[2021-09-16 03:07] LABS: CALCIUM 7.7 MG/DL (8.5-10.1)
[2021-09-16 03:08] LABS: TOTAL PROTEIN 5.8 GM/DL (6.4-8.2)
[2021-09-16 03:10] LABS: BILIRUBIN,TOTAL 1.3 MG/DL (0.1-1.0)
[2021-09-16 03:12] LABS: CREATININE SERUM 1.29 MG/DL (0.60-1.30)
[2021-09-16] MEDS: PROPOFOL DRIP (ICU) 100 ML IV SCH ×2 (03:18→09:15)
[2021-09-16] MEDS ORDERED: ACETAMINOPHEN 325 MG TABLET PO PRN (03:30)
--- NOTE | 2021-09-16 04:38 | Progress Note ---
Standard Progress Note Progress Notes/Assess & Plan Date Seen by a Provider: Sep 16, 2021 Time Seen by a Provider: 04:38 Progress/Assessment & Plan glu still > 400, will increase insulin drip rate to 8 units/h Focused Exam Lactate Level 09/15/21 19:50: Lactic Acid Level 7.15*H 09/15/21 21:50: Lactic Acid Level 4.30*H 09/16/21 02:00: Lactic Acid Level 4.96*H Lactic Acid Level Laboratory Tests Test 09/16/21 02:00 Lactic Acid Level 4.96 MMOL/L (0.50-2.00) *H Clinical Quality Measures AMI/AHF: ASA po Prior to arrival: No JAI MELENDEZ MD Sep 16, 2021 04:38
[2021-09-16] MEDS ORDERED: ACETAMINOPHEN 325 MG TABLET PO SCH (06:00)
[2021-09-16] MEDS ORDERED: busPIRone 15 MG (BUSPAR) TABLET PO SCH (06:00)
[2021-09-16] MEDS ORDERED: NOREPINEPHRINE 8 MG/250 ML 250 ML IV ONE (06:10)
[2021-09-16 06:58] VITALS: BP 89/46
[2021-09-16] MEDS ORDERED: POTASSIUM CL 10MEQ/50ML IVPB 300 ML IV ONE (07:26)
[2021-09-16] MEDS: POTASSIUM CL 10MEQ/50ML IVPB 50 ML IV SCH (07:31)
[2021-09-16] MEDS: fentaNYL DRIP PRE-MIX 250 ML IV SCH (07:41)
[2021-09-16 07:53] VITALS: BP_DIAS 43
[2021-09-16 08:17] LABS: BASOPHILS % (AUTO) 0 % (0-10); EOSINOPHILS % (AUTO) 0 % (0-10); HEMATOCRIT 43 % (40-54); HEMOGLOBIN 14.5 g/dL (13.3-17.7); LYMPHOCYTES # (AUTO) 0.9 10^3/uL (1.0-4.0); LYMPHOCYTES % (AUTO) 4 % (12-44); MEAN CORPUSCULAR HEMOGLOBIN 31 pg (25-34); MEAN CORPUSCULAR HGB CONC 34 g/dL (32-36); MEAN CORPUSCULAR VOLUME 92 fL (80-99); MEAN PLATELET VOLUME 10.1 fL (9.0-12.2); MONOCYTES # (AUTO) 1.4 10^3/uL (0.0-1.0); MONOCYTES % (AUTO) 6 % (0-12); NEUTROPHILS # (AUTO) 22.2 10^3/uL (1.8-7.8); NEUTROPHILS % (AUTO) 90 % (42-75); PLATELET COUNT 198 10^3/uL (130-400); WHITE BLOOD COUNT 24.7 10^3/uL (4.3-11.0)
[2021-09-16 08:34] LABS: ALBUMIN 3.2 GM/DL (3.2-4.5); POTASSIUM 2.8 MMOL/L (3.6-5.0)
[2021-09-16 08:35] LABS: CALCIUM 7.8 MG/DL (8.5-10.1)
[2021-09-16 08:37] LABS: TOTAL PROTEIN 5.7 GM/DL (6.4-8.2)
[2021-09-16 08:38] LABS: BILIRUBIN,TOTAL 0.8 MG/DL (0.1-1.0)
[2021-09-16 08:38] LABS: ABG BASE EXCESS -10.5 MMOL/L (-2.5-2.5); ABG OXYGEN SATURATION 95 % (94-100); ABG PCO2 38 MMHG (35-45); ABG PO2 62 MMHG (79-93); ABG TCO2 17.8 MMOL/L (21.0-31.0)
[2021-09-16 08:39] LABS: ALLENS TEST ARTLINE; PATIENT TEMP 33.1; VENTILATOR YES
[2021-09-16 08:40] LABS: CREATININE SERUM 1.23 MG/DL (0.60-1.30); PHOSPHORUS 1.7 MG/DL (2.3-4.7)
[2021-09-16 08:41] LABS: ABG PH 7.23 (7.37-7.43)
[2021-09-16 08:43] LABS: MAGNESIUM 2.5 MG/DL (1.6-2.4)
[2021-09-16 08:46] LABS: BAND NEUTROPHILS 10 %; LYMPHOCYTES % (MANUAL) 4 %; MONOCYTES % (MANUAL) 3 %; NEUTROPHILS % (MANUAL) 83 %; RBC MORPH NORMAL
[2021-09-16] MEDS ORDERED: ASPIRIN E.C. 81 MG (ECOTRIN) TAB PO SCH (09:00)
[2021-09-16] MEDS ORDERED: ASPIRIN 81 MG CHEW (CHILDREN'S ASA) PO SCH (09:00)
[2021-09-16] MEDS ORDERED: LACRI-LUBE OPTHALMIC OINT 3.5 GM TUBE OU PRN (09:00)
[2021-09-16 09:15] VITALS: BP_SYST 41
--- NOTE | 2021-09-16 09:16 | Discharge Summary ---
Diagnosis/Chief Complaint Date of Admission Sep 15, 2021 at 19:38 Date of Discharge 09/16/2021 Discharge Date: Sep 16, 2021 Discharge Time: 09:26 Admission Diagnosis Admission Diagnosis Cardiac arrest Cardiogenic shock Acute respiratory failure with hypoxia Discharge Diagnosis 1. Coronary artery disease with unstable angina. 2. Non-ST elevation myocardial infarction. 3. Ischemic cardiomyopathy. 4. Acute heart failure with reduced ejection fraction. 5. Acute respiratory failure with hypoxia. 6. Cardiogenic shock. 7. Cardiac arrest. 8. Altered mental status, possibly anoxic brain injury due to prolonged r esuscitation (45 minutes off and on in the emergency room). 9. Acute kidney injury on chronic kidney disease. 10. History of hypertension. 11. History of hyperlipidemia. 12. History of type 2 diabetes mellitus, uncontrolled. 13 Cigarette smoker, intermittent. 14. Obesity. Reason Hospital Visit Status post cardiac arrest. Discharge Summary Hospital Course Was the Problem List Reviewed?: Yes Hospital Course The patient presented to the hospital by private vehicle due to severe shortness of breath. His was driving him to the hospital and she believes that about 5 minutes from the hospital, he became unresponsive in the vehicle. When she arrived to the hospital, she ran into the hospital and alerted the emergency room. The staff went out to the vehicle and brought the patient into the ospital. He was in cardiac arrest. ACLS protocol was initiated. He received multiple doses of epinephrine. He also had some wide-complex tachycardia and received defibrillations. CPR was continued off and on for approximately 45 minutes. He would intermittently regain a pulse and within a short period of time, would be pulseless. He was intubated in the emergency room. After 45 minutes of ACLS protocol, he regained spontaneous circulation. At that time, I was called for emergency cardiology consultation. His electrocardiogram showed sinus tachycardia with diffuse ST depression but no definitive signs of ST elevation myocardial infarction. He was taken for emergency cardiac catheterization at which time he was found to have severe three-vessel coronary artery disease involving a 90% stenosis of the distal left main coronary artery. The vessels were heavily calcified. Left ventriculogram showed an ejection fraction of approximately 15-20%. An intra-aortic balloon pump was then placed via the right femoral artery. He was admitted to the intensive care unit on mechanical ventilation. Hypothermia protocol was started. Overnight, he has remained in cardiogenic shock. He is presently on norepinephrine and phenylephrine infusions as well as fixed dose dobutamine. Balloon pump remains on 1: 1 with good augmentation. We are presently in the process of transferring the patient by helicopter to [facility] [place] in [place], [place]. He remains critically ill. He has not had any purposeful movements and a head CT prior to bringing him up to the intensive care unit showed some nonspecific changes and the radiologist raised concern about early findings due to anoxic brain injury. I had several discussions with the patient's about his overall clinical status. My main concern about keeping him here is that if he needs more advanced mechanical circulatory support then a balloon pump, we do not have Impella or any other advanced mechanical circulatory support at our hospital. I did not attempt high risk intervention due to severe coronary calcification and concern about possibly not being able to expand the stents. The is aware that the patient is critically ill and may have at least some degree of anoxic brain injury. We will transfer him to a tertiary care facility which has capability of advanced mechanical circulatory support as well as cardiac surgery. Over 30 minutes was spent in direct [id number] contact with the patient in preparing this discharge summary. Certain portions of this document may have been dictated utilizing voice recognition technology. Inherent to this technology, typographical and grammatical errors may exist. As much as I am diligent to identify and correct these mistakes, some errors may remain in the document. Labs Laboratory Tests 09/15/21 00:15: Lactic Acid Level 5.11*H 09/15/21 16:50: 09/15/21 16:56: White Blood Count 14.3H, Mean Corpuscular Volume 100H, Mean Corpuscular Hemoglobin Concent 31L, Lymphocytes # (Auto) 4.8H, Monocytes # (Auto) 1.5H, Eosinophils # (Auto) 0.4H, Prothrombin Time 14.9H, Sodium Level 147H, Carbon Dioxide Level 16L, Anion Gap 25H, Glucose Level 327H, Troponin I 0.032H 09/15/21 17:05: Urine Specific Lipan 1.025H, Urine Protein 1+H, Urine Glucose (UA) 3+H, Urine RBC (Auto) 1+H, Urine RBC 5-10H, Urine Crystals PRESENTH, Urine Amorphous Sediment FEW GARIMA URATESH, Urine Other FEW SPERMH 09/15/21 17:50: Arterial Blood pH 6.89*L, Arterial Blood Partial Pressure CO2 85*H, Arterial Blood Partial Pressure O2 50L, Arterial Blood HCO3 16*L, Arterial Blood Total CO2 18.8L, Arterial Blood Oxygen Saturation 64L, Arterial Blood Base Excess - 15.8L 09/15/21 19:50: White Blood Count 20.8H, Neutrophils (%) (Auto) 80H, Neutrophils # (Auto) 16.7H, Eosinophils # (Auto) 0.4H, Immature Granulocyte # (Auto) 0.4H, Prothrombin Time 17.2H, Activated Partial Thromboplast Time 98H, D-Dimer 13.70H, Sodium Level 133L, Carbon Dioxide Level 18L, Anion Gap 16H, Creatinine 1.38H, Glucose Level 674*H, Lactic Acid Level 7.15*H, Calcium Level 7.9L, Corrected Calcium 8.4L, Phosphorus Level 9.6H, Magnesium Level 5.0*H, Direct Bilirubin 0.5H, Aspartate Amino Transf (AST/SGOT) 167H, Alanine Aminotransferase (ALT/SGPT) 123H, Total Creatine Kinase 490H, Troponin I 0.781*H, Total Protein 5.5L, Amylase Level 179H , Lipase 125H 09/15/21 19:55: Arterial Blood pH 6.98*L, Arterial Blood Partial Pressure CO2 90*H, Arterial Blood HCO3 20L, Arterial Blood Oxygen Saturation 87L, Arterial Blood Base Excess -10.2L 09/15/21 21:04: Glucometer 448*H 09/15/21 21:50: Lactic Acid Level 4.30*H 09/15/21 22:29: Glucometer 495*H 09/16/21 00:03: Glucometer 487*H 09/16/21 00:15: 09/16/21 00:59: Glucometer 493*H 09/16/21 01:25: Arterial Blood pH 7.17*L, Arterial Blood Partial Pressure CO2 47H, Arterial Blood Partial Pressure O2 122H, Arterial Blood HCO3 18L, Arterial Blood Total CO2 19.6L, Arterial Blood Base Excess -9.8L 09/16/21 02:00: White Blood Count 27.0H, Neutrophils (%) (Auto) 88H, Lymphocytes (%) (Auto) 3L, Neutrophils # (Auto) 23.6H, Lymphocytes # (Auto) 0.8L, Monocytes # (Auto) 2.2H, Immature Granulocyte # (Auto) 0.2H, Activated Partial Thromboplast Time > 200*H, Carbon Dioxide Level 14L, Anion Gap 20H, Blood Urea Nitrogen 25H, Glucose Level 571*H, Lactic Acid Level 4.96*H, Calcium Level 7.7L, Corrected Calcium 8.3L, Total Bilirubin 1.3H, Aspartate Amino Transf (AST/SGOT) 311H, Alanine Aminotransferase (ALT/SGPT) 140H, Total Protein 5.8L 09/16/21 02:08: Glucometer 469*H 09/16/21 03:06: Glucometer 469*H 09/16/21 04:06: Glucometer 415*H 09/16/21 05:03: Glucometer 401*H 09/16/21 05:59: Glucometer 409*H 09/16/21 06:10: Potassium Level 2.9L 09/16/21 07:20: Glucometer 385H 09/16/21 08:00: Potassium Level 2.8L, White Blood Count 24.7H, Neutrophils (%) (Auto) 90H, Lymph ocytes (%) (Auto) 4L, Neutrophils # (Auto) 22.2H, Lymphocytes # (Auto) 0.9L, Monocytes # (Auto) 1.4H, Activated Partial Thromboplast Time 107H, Chloride Level 112H, Carbon Dioxide Level 16L, Anion Gap 15H, Blood Urea Nitrogen 24H, Glucose Level 409*H, Calcium Level 7.8L, Corrected Calcium 8.4L, Phosphorus Level 1.7L, Magnesium Level 2.5H, Aspartate Amino Transf (AST/SGOT) 353H, Alanine Aminotransferase (ALT/SGPT) 145H, Total Protein 5.7L 09/16/21 08:01: Glucometer 344H 09/16/21 08:30: Arterial Blood pH 7.23*L, Arterial Blood Partial Pressure O2 62L, Arterial Blood HCO3 16*L, Arterial Blood Total CO2 17.8L, Arterial Blood Base Excess -10.5L 09/16/21 09:12: Glucometer 329H Procedures Cardiac catheterization. Intra-aortic balloon pump placement. Echocardiogram. Consultations eICU. Discharge Physical Examination Allergies: Coded Allergies: Penicillins (Verified Allergy, Unknown, 07/28/16) Vitals & I&Os Vital Signs Date Time Temp Pulse Resp B/P (MAP) Pulse Ox O2 Delivery O2 Flow Rate FiO2 09/16/21 09:00 80 24 99/43 96 Mechanical Ventilator 100.00 09/16/21 09:00 33.0 09/16/21 08:00 55 Discussion & Recommendations PHYSICAL EXAM: General: Intubated and sedated. Well nourished and appears stated age. He is on hypothermia. Eye: Conjunctivae are clear. There are no xanthelasma. HENT: Normocephalic. Atraumatic. Carotid pulsations 2/2 without bruits. Neck: Jugular venous pressure does not appear elevated. No thyromegaly appreciated. Respiratory: Symmetrical expansion bilaterally. Coarse breath sounds due to the ventilator. Cardiovascular: Normal rate. Regular rhythm. No murmur. No gallop. Point of maximal impulse is not appear displaced. Good pulses equal in all extremities. No edema. Gastrointestinal: Soft. Hypoactive bowel sounds. Skin: Skin turgor is normal. There is no pallor. Musculoskeletal: No obvious deformities. Neurologic: Intubated and sedated. Intermittent tonic-clonic jerking activity of upper and lower extremities but no obvious tonic-clonic seizures. Psychiatric: Not obtainable due to clinical status. Discharge Home Medications Reviewed and agree with Discharge Medication list on patient's Discharge Instruction sheet Condition at Discharge Critical Instructions to Patient/Family Patient transferred by helicopter to outside hospital. Clinical Quality Measures Admission Status Admission Status: Inpatient Order (span 2 midnights) Reason for Inpatient Admission: Requires intensive care unit for mechanical ventilation and circulatory support with intra-aortic balloon pump and vasopressor medication. AMI/AHF: Ejection Fraction %: 20 D/C Medications Addressed: Kris inhibitors, Angiotension receptor glen, Beta glen D/C Inst. for HF given: No Reason KRIS-I/ARB not given: Shock Reason Beta-Glen not given: Shock requiring IV diuretics/vasoac, CHF requiring IV diuretics/vasoac ASA Given prior to admit: Yes ASA po Prior to arrival: No Initial ECG Impression: Nonspecific Changes DVT/VTE Risk/Contraindication: VTE Addressed: Yes VTE Present on Admission: No RFS Level Per Nursing on Admit: 3=High JACKIE CORTEZ JR, MD Sep 16, 2021 09:16
[2021-09-16] MEDS ORDERED: NS 1000 ML IV BAG IV ONE (10:21)
[2021-09-16] MEDS ORDERED: AMIODARONE 450 MG/9 ML (CORDARONE) VIAL IV ONE (10:21)
[2021-09-16] MEDS ORDERED: ATROPINE INJECTION 1 MG/10 ML SYR (ABBOTT) INJ ONE (10:21)
[2021-09-16] MEDS ORDERED: EPINEPHrine 0.1 MG/ML 10 ML (HOSPIRA) SYR INJ ONE (10:21)
[2021-09-16] MEDS ORDERED: ROCURONIUM 10 MG/ML 5 ML SYRINGE IV ONE (10:52)
[2021-09-16] MEDS ORDERED: ROSUVASTATIN 20 MG (CRESTOR) TABLET PO SCH (21:00)
== END 2021-09-16 11:30 | disposition short-term general hospital (02) | DRG 270 ==
LOC: EDUNIT# 16:48 → ER 16:53 → CATH 17:18 → ICU 19:36 → CATH 19:38 → ICU 19:38
PROVIDERS: ADMIT Internal Medicine Cardiovascular Disease; ATTEND Internal Medicine Cardiovascular Disease
PROC: 5A02210 Assistance with Cardiac Output using Balloon Pump, Continuous (ICD-10-PCS; principal; 2021-09-15)
PROC: 4A023N7 Measurement of Cardiac Sampling and Pressure, Left Heart, Percutaneous Approach (ICD-10-PCS; 2021-09-15)
PROC: B2111ZZ Fluoroscopy of Multiple Coronary Arteries using Low Osmolar Contrast (ICD-10-PCS; 2021-09-15)
PROC: B2151ZZ Fluoroscopy of Left Heart using Low Osmolar Contrast (ICD-10-PCS; 2021-09-15)
PROC: 5A1935Z Respiratory Ventilation, Less than 24 Consecutive Hours (ICD-10-PCS; 2021-09-15)
PROC: 0BH17EZ Insertion of Endotracheal Airway into Trachea, Via Natural or Artificial Opening (ICD-10-PCS; 2021-09-15)
PROC: 5A12012 Performance of Cardiac Output, Single, Manual (ICD-10-PCS; 2021-09-15)
DX: I21.4 Non-ST elevation (NSTEMI) myocardial infarction (principal); R57.0 Cardiogenic shock; J96.01 Acute respiratory failure with hypoxia; I46.9 Cardiac arrest, cause unspecified; I50.21 Acute systolic (congestive) heart failure; G93.1 Anoxic brain damage, not elsewhere classified; I25.110 Atherosclerotic heart disease of native coronary artery with unstable angina pectoris; E11.65 Type 2 diabetes mellitus with hyperglycemia; Z79.84 Long term (current) use of oral hypoglycemic drugs; Z20.822 Contact with and (suspected) exposure to COVID-19; I25.5 Ischemic cardiomyopathy; I11.0 Hypertensive heart disease with heart failure; E78.2 Mixed hyperlipidemia; E66.9 Obesity, unspecified; Z68.33 Body mass index [BMI] 33.0-33.9, adult; F17.210 Nicotine dependence, cigarettes, uncomplicated; Z88.0 Allergy status to penicillin
CPT/HCPCS: 33967; 36415; 70450; 71045; 80048; 80053; 80076; 81000; 82150; 82248; 82330; 82550; 82805; 82947; 83605; 83690; 83735; 84100; 84132; 84478; 84484; 85007; 85025; 85027; 85379; 85610; 85730; 86850; 86900; 86901; 87635; 87636; 87804; 93005; 93306; 93458; 94002; 94003